=== PATIENT | male | born 1940 | race Asian ===

== ENCOUNTER 2020-06-25 14:09 | Inpatient (IN) | payer OTHER, SELFPAY ==
[2020-06-25] VITALS (14 sets, daily range): BP systolic 112–128
[~2020-06-25] VITALS: Ht 170.2 cm; Wt 61.7 kg
--- NOTE | 2020-06-25 16:00 | NUR ---
RN NOTES: ADMISSION DIRECT ADMIT FROM [facility] ICU. PATIENT CAME IN VIA ACLS TRANSPORT, AWAKE AND ALERT, NOT IN ACUTE DISTRESS, WITH ET TUBE TO VENTILATOR. PATIENT TO BED, SINUS RHYTHM ON THE MONITOR. INITIAL VITAL SIGN CHECKED AND RECORDED. ET TO VENT SETTING: AC 20, VT 400, FIO2 28%, PEEP 5 PATIENT MADE COMFORTABLE, SPO2 98% WILL CALL MD FOR ADMITTING ORDERS.
[2020-06-25] MEDS ORDERED: DOCU-144 PO (16:41)
[2020-06-25] MEDS ORDERED: HYDR-3917 PO (16:41)
[2020-06-25] MEDS ORDERED: ALBU2.5V7 INH (16:41)
[2020-06-25] MEDS ORDERED: ACET325T PO (16:41)
[2020-06-25] MEDS ORDERED: ONDANSETRON HCL 4 MG/2 ML VIAL IVP PRN (16:45)
[2020-06-25] MEDS ORDERED: METOCLOPRAMIDE HCL 10 MG/2 ML VIAL IVP PRN (16:45)
[2020-06-25] MEDS ORDERED: DOCUSATE SODIUM 100 MG/10 ML UDC PO PRN (16:45)
[2020-06-25] MEDS ORDERED: IPRATROPIUM/ALBUTEROL SULFATE 3 ML AMPUL.NEB (DUONEB) INH PRN (16:45)
--- NOTE | 2020-06-25 17:35 | NUR ---
COLLECTED SPUTUM AND MRSA CULTURES AND TAKEN TO LAB.
--- NOTE | 2020-06-25 17:47 | NUR ---
Dr. Moreno aware of consult
--- NOTE | 2020-06-25 17:48 | NUR ---
Called Dr. Gilliam with a consult,Dr. Carmina Epstein data communications engineer today. Spoke with Maira from the exchange
--- NOTE | 2020-06-25 17:54 | NUR ---
Alvarado Croft aware of consult
[2020-06-25] MEDS ORDERED: FLU VACC QS2020-21(65UP)/PF 0.7 ML/SYRINGE I.M. PRN (18:15)
--- NOTE | 2020-06-25 18:45 | NUR ---
CLOSING NOTES PT RESTING IN BED, CHEST RISE AND FALL NOTED ON VENT. PICC LINE INTACT AND PATENT, NO SIGNS OF INFILTRATION NOTED. OGTUBE IN PLACE. NO ACUTE DISTRESS NOTED. ALL NEEDS MET. CALL LIGHT IN REACH. FALL AND ASPIRATION PRECAUTIONS IN PLACE. WILL ENDORSE TO NOC NURSE.
[2020-06-25 19:01] LABS: HEMATOCRIT 23.9 % (36-54); HEMOGLOBIN 7.6 g/dL (14.0-18.0); MEAN CORPUSCULAR HEMOGLOBIN 24 pg (27-31); MEAN CORPUSCULAR HGB CONC 32 % (32-36); MEAN CORPUSCULAR VOLUME 75 fL (79.0-98.0); PLATELET COUNT (AUTO) 211 K/uL (130-430); RED CELL DISTRIBUTION WIDTH 17.4 % (9.0-15.0); WHITE BLOOD COUNT (AUTO) 29.5 K/uL (4.8-10.8)
--- NOTE | 2020-06-25 19:05 | NUR ---
OPENING NOTE: RECEIVED REPORT FROM RN USING SBAR REPORTING. ALL CARE ASSUMED.
[2020-06-25 19:15] LABS: ANION GAP 6 (5-15); CALCIUM 7.3 mg/dL (8.4-11.0); CHLORIDE 115 mmol/L (98-107); CREATININE 1.36 mg/dL (0.55-1.30); GLUCOSE 116 mg/dL (70-99); POTASSIUM 5.2 mmol/L (3.5-5.1); SODIUM SERUM 146 mmol/L (136-145); UREA NITROGEN, BLOOD 67 mg/dL (8-21)
--- NOTE | 2020-06-25 19:19 | NUR ---
CONSULTATION CANCELLED PER FOR CONSULTATION DIALED: [phone] SPOKE TO: CANDY
[2020-06-25 19:21] LABS: ALANINE AMINOTRANSFERASE 72 U/L (12-78); ALBUMIN 1.9 g/dL (3.4-4.8); ASPARTATE AMINOTRANSFERASE 38 U/L (10-37); BAND % (MANUAL) 1 % (0-6); LYMPHOCYTES % (MANUAL) 1 % (20-46); MONOCYTES % (MANUAL) 1 % (0-11); TOTAL BILIRUBIN 0.4 mg/dL (0.0-1.0)
[2020-06-25 19:22] LABS: BASOPHILS % (MANUAL) 0 % (0-2); EOSINOPHILS % (MANUAL) 0 % (0-7)
[2020-06-25] MEDS: FLUCONAZOLE 200 mg/ NS 100 ML IV SCH (20:01)
[2020-06-25] MEDS: FAMOTIDINE PF 20 MG/2 ML VIAL IVP SCH (20:01)
[2020-06-25] MEDS: HEPARIN SODIUM,PORCINE 5,000 UNITS/ML VIAL SUBCUT SCH (20:03)
[2020-06-25] MEDS: PIPERACILLIN/TAZO 2.25G/DEX-IS 50 ML IV SCH (23:05)
[2020-06-26] VITALS (39 sets, daily range): BP systolic 105–143
[2020-06-26 06:22] LABS: BASOPHILS # (AUTO) 0.1 K/uL (0.0-0.2); BASOPHILS % (AUTO) 0.4 % (0.0-2.0); HEMATOCRIT 22.5 % (36-54); HEMOGLOBIN 7.3 g/dL (14.0-18.0); LYMPHOCYTES # (AUTO) 0.3 K/uL (1.0-5.5); LYMPHOCYTES % (AUTO) 1.1 % (20.5-51.5); MEAN CORPUSCULAR HEMOGLOBIN 24 pg (27-31); MEAN CORPUSCULAR HGB CONC 32 % (32-36); MEAN CORPUSCULAR VOLUME 75 fL (79.0-98.0); MONOCYTES # (AUTO) 1.5 K/uL (0.0-1.0); MONOCYTES % (AUTO) 5.5 % (1.7-9.3); PLATELET COUNT (AUTO) 203 K/uL (130-430); WHITE BLOOD COUNT (AUTO) 27.9 K/uL (4.8-10.8)
[2020-06-26] MEDS: PIPERACILLIN/TAZO 2.25G/DEX-IS 50 ML IV SCH ×3 (06:34→22:10)
[2020-06-26 07:15] LABS: ALANINE AMINOTRANSFERASE 60 U/L (12-78); ALBUMIN 1.8 g/dL (3.4-4.8); ANION GAP 6 (5-15); ASPARTATE AMINOTRANSFERASE 31 U/L (10-37); CALCIUM 7.4 mg/dL (8.4-11.0); CHLORIDE 116 mmol/L (98-107); CREATININE 1.34 mg/dL (0.55-1.30); GLUCOSE 108 mg/dL (70-99); POTASSIUM 5.4 mmol/L (3.5-5.1); SODIUM SERUM 147 mmol/L (136-145); TOTAL BILIRUBIN 0.5 mg/dL (0.0-1.0); UREA NITROGEN, BLOOD 66 mg/dL (8-21)
--- NOTE | 2020-06-26 08:00 | NUR ---
AM ASSESSMENT. PT MECHANICALLY INTUBATED, MAKES EYE CONTACT, GENERALIZED EDEMA, TURNED AND REPOSITIONED IN BED, BILAT LEGS ELEVATED ON PILLOWS, IVF INFUSING NS AT 3 ML PER HR, DIOP CATHETER DRAINING, CONTINUE TO MONITOR.
[2020-06-26] MEDS ORDERED: methylPREDNISolone SOD SUCC 40 MG/ML VIAL IVP SCH (09:00)
[2020-06-26] MEDS: HEPARIN SODIUM,PORCINE 5,000 UNITS/ML VIAL SUBCUT SCH ×2 (09:00→20:59)
[2020-06-26] MEDS: SOD FERRIC GLUC COMPLEX/SUC 125 MG in NS 100 ML IV SCH (09:06)
--- NOTE | 2020-06-26 10:20 | NUR ---
SURGEON. DR MATHEW CAME WITH NEW ORDERS.
--- NOTE | 2020-06-26 11:40 | NUR ---
CONSENT. DR MATHEW IN THE STATION, PHONED PT'S FAMILY, SPOKE TO HARRIET GERMAN. HE GAVE SURGERY AND TRANSFUSION CONSENTS.
--- NOTE | 2020-06-26 12:06 | NUR ---
Nutrition Update Brody Scale 15 noted. Pt admitted for chronic hypoxemic respiratory failure. Diet: Jevity 1.5 at 55 ml/hr, Free Water Flush: 100 ml Q 6H via OGT BMI: 21.5 kg/m2 RD to follow per nutrition care standards.
--- NOTE | 2020-06-26 17:49 | NUR ---
Dietitian Recommendations * Recommend continuing Jevity 1.5 at 55 ml/hr, Free Water Flush: 100 ml Q 6H via OGT Provides: 1980 kcal/day, 84 gm protein/day, and 1403 ml free water/day Meets: 106% of lower end of estimated caloric needs and 90% of lower end of estimated protein needs LP, RD Please refer to Nutrition Assessment for details. Addendum: 06/26/20 at [address] Amended: Links added.
--- NOTE | 2020-06-26 18:24 | NUR ---
BLOOD BANK. CALLED TO INQUIRE OF THE AVAILABILITY OF BLOOD, ELECTRONICS RECYCLER DEAN STATED THAT THEY RUN OUT OF B POSITIVE IN THE DEPT, THEY WILL CONTACT ICU WHEN THE BLOOD PRODUCT IS DELIVERED AND READY FOR RISK MGR.
--- NOTE | 2020-06-26 20:30 | NUR ---
RECEIVED PT BEDRIDDEN AND VENT. DEPENDENT VIA. ORAL E.T.T. HE DOES RESPOND TO VERBAL & TACTILE STIMULI; NOTED LOCALIZES TO SOURCE OF STIMULI BUT DOES NOT MOVE LOWER LEGS TO COMMAND. HE DOES MOVE ARMS WELL (AEB) PT. SWINGING OR SWATTING @ MY HANDS DURING HIS PHYSICAL EXAM.
[2020-06-26] MEDS: FLUCONAZOLE 200 mg/ NS 100 ML IV SCH (20:57)
[2020-06-26] MEDS: FAMOTIDINE PF 20 MG/2 ML VIAL IVP SCH (20:57)
[2020-06-26] MEDS: LINEZOLID 300 ML IV SCH (20:57)
--- NOTE | 2020-06-26 21:15 | NUR ---
CALLED BLOOD BANK & SPOKE WITH GLOBAL ACCOUNT MANAGER.DEAN; SHE STATES ([id number] JUST ARRIVED. STATES SHE WILL CALL WHEN UNITS READY.
[2020-06-27] VITALS (38 sets, daily range): BP systolic 128–162
--- NOTE | 2020-06-27 03:15 | NUR ---
PATIENT GESTURING @ FOREHEAD. WHEN ASKED DOES HIS HEAD HURT; PT. NODS YES. [0330AM] PT. GIVEN TYLENOL 650MG VIA. OGT. FOR C/O HEADACHE.
[2020-06-27] MEDS: ACETAMINOPHEN 325 MG TABLET NG PRN (03:31)
[2020-06-27] MEDS: PIPERACILLIN/TAZO 2.25G/DEX-IS 50 ML IV SCH ×3 (06:45→22:02)
[2020-06-27 06:56] LABS: PROTHROMBIN TIME 9.9 SECS (9.5-12.5)
[2020-06-27 07:50] LABS: ALANINE AMINOTRANSFERASE 57 U/L (12-78); ALBUMIN 1.8 g/dL (3.4-4.8); ANION GAP 9 (5-15); ASPARTATE AMINOTRANSFERASE 25 U/L (10-37); CALCIUM 7.3 mg/dL (8.4-11.0); CHLORIDE 114 mmol/L (98-107); GLUCOSE 129 mg/dL (70-99); SODIUM SERUM 147 mmol/L (136-145); TOTAL BILIRUBIN 0.6 mg/dL (0.0-1.0); UREA NITROGEN, BLOOD 66 mg/dL (8-21)
--- NOTE | 2020-06-27 08:00 | NUR ---
AM ASSESSMENT. PT AWAKE, TEMP TAKEN, 98.9, ASSESSED FOR PAIN, SHAKING HIS HEAD LEFT AND RIGHT, SHEET AND GOWN TO THE LEFT SIDE OF HIS BODY MOIST, REMOVED BP CUFF FROM LEFT ARM, SKIN WEEPING TO ANTECUBITAL AREA, WET WIPES APPLIED AND PATCHED WITH NON ABSORBENT PAD, WITH LINEN, BP CUFF REAPPLIED. PT INCONTINENT OF BOWEL, LARGE AMOUNT OF DARK COLOR STOOL, LOOSE CONSISTENCY. INCONTINENT CARE DONE, ALL LINEN CHANGED, PT ATTEMPTS TO HIT NURSE WITH HIS ARM, AND WOULD GRAB THE VENTILATOR CONNECTING TUBES TO PULL THE TUBE DOWN.
[2020-06-27 08:03] LABS: BASOPHILS % (AUTO) 0.1 % (0.0-2.0); EOSINOPHILS % (AUTO) 0.1 % (0.0-4.0); HEMATOCRIT 28.7 % (36-54); HEMOGLOBIN 9.4 g/dL (14.0-18.0); LYMPHOCYTES # (AUTO) 0.2 K/uL (1.0-5.5); LYMPHOCYTES % (AUTO) 0.7 % (20.5-51.5); MEAN CORPUSCULAR HEMOGLOBIN 26 pg (27-31); MEAN CORPUSCULAR HGB CONC 33 % (32-36); MEAN CORPUSCULAR VOLUME 78 fL (79.0-98.0); MONOCYTES # (AUTO) 1.4 K/uL (0.0-1.0); MONOCYTES % (AUTO) 5.5 % (1.7-9.3); NEUTROPHILS # (AUTO) 23.9 K/uL (1.8-7.7); PLATELET COUNT (AUTO) 148 K/uL (130-430); RED BLOOD CELL COUNT(AUTO) 3.68 MIL/uL (4.2-6.2); RED CELL DISTRIBUTION WIDTH 19.9 % (9.0-15.0); WHITE BLOOD COUNT (AUTO) 25.5 K/uL (4.8-10.8)
[2020-06-27] MEDS: LINEZOLID 300 ML IV SCH ×2 (08:06→20:24)
[2020-06-27 08:29] LABS: NEUTROPHILS % (AUTO) 93.6 % (40.0-70.0)
[2020-06-27] MEDS ORDERED: methylPREDNISolone SOD SUCC 40 MG/ML VIAL IVP SCH (09:00)
[2020-06-27] MEDS: HEPARIN SODIUM,PORCINE 5,000 UNITS/ML VIAL SUBCUT SCH ×2 (09:00→20:25)
[2020-06-27] MEDS: SOD FERRIC GLUC COMPLEX/SUC 125 MG in NS 100 ML IV SCH (10:03)
[2020-06-27] MEDS: hydrALAZINE HCL 20 MG/ML VIAL IVP PRN (14:34)
--- NOTE | 2020-06-27 14:34 | NUR ---
HIGH BP. CALLED DR DURAN AND REPORTED THE PATIENT'S BLOOD PRESSURE, 158/100, 158/94. NEW ORDERS RECEIVED. MEDICATED PT WITH HYDRALAZINE 10 MG IVP, WILL CONTINUE TO MONITOR PT.
[2020-06-27] MEDS: EPOETIN ALFA 10,000 UNITS/ML VIAL SUBCUT SCH (17:00)
--- NOTE | 2020-06-27 18:50 | NUR ---
AGITATION. PT PULLED OUT HIS OGT, ETT REMAIN INTACT, DR MORROW IN THE UNIT AND MADE HER AWARE, NEW ORDERS RECEIVED. PT UNCOOPERATIVE WHEN FEEDING TUBE WAS ATTEMPTED INTO MOUTH AND NOSE. RESTRAINTS APPLIED TO BOTH WRISTS, NGT SIZE 16 FR INSERTED, AUSCULTATED OVER THE ABDOMEN WITH POSITIVE GAS SOUNDS HEARD.
--- NOTE | 2020-06-27 19:25 | NUR ---
Opening note received report and assumed care. patient awake and able to follow simple commands. BRENDAN picc line in place and patent with ivf infusing to keep open. ngt in place with Jevity infusing and tolerating without residuals. Vent to ETT tolerating settings on PRVC mode. Jackson catheter in place and draining to gravity. will continue to monitor as per unit protocol.
--- NOTE | 2020-06-27 19:45 | NUR ---
Spoke with patient's son Can to report that patient had to be put on restraints due to becoming combative. Also informed NGT was replaced during dayshift. Family acknowledged.
--- NOTE | 2020-06-27 20:05 | NUR ---
Repositioned for comfort. patient turned and supported with pillow. denies pain but reported feeling cold. No fever noted.
[2020-06-27] MEDS: FLUCONAZOLE 200 mg/ NS 100 ML IV SCH (20:16)
[2020-06-27] MEDS: FAMOTIDINE PF 20 MG/2 ML VIAL IVP SCH (22:02)
--- NOTE | 2020-06-27 23:53 | NUR ---
Assessment completed and patient repositioned. Tolerated well.
[2020-06-28] VITALS (33 sets, daily range): BP systolic 88–171
[2020-06-28] MEDS: hydrALAZINE HCL 20 MG/ML VIAL IVP PRN (04:55)
--- NOTE | 2020-06-28 04:56 | NUR ---
Blood pressure continues to increase as now BP 171/102 HR 92. hydralazine 10 mg ivp given as per MD orders pRN for SBP>165
[2020-06-28] MEDS: PIPERACILLIN/TAZO 2.25G/DEX-IS 50 ML IV SCH ×3 (06:34→22:00)
[2020-06-28 06:54] LABS: ANION GAP 8 (5-15); CALCIUM 7.8 mg/dL (8.4-11.0); CHLORIDE 114 mmol/L (98-107); CREATININE 1.14 mg/dL (0.55-1.30); GLUCOSE 129 mg/dL (70-99); POTASSIUM 4.8 mmol/L (3.5-5.1); SODIUM SERUM 146 mmol/L (136-145); UREA NITROGEN, BLOOD 57 mg/dL (8-21)
[2020-06-28 06:58] LABS: BASOPHILS % (AUTO) 0.1 % (0.0-2.0); EOSINOPHILS % (AUTO) 0.1 % (0.0-4.0); HEMATOCRIT 31.1 % (36-54); HEMOGLOBIN 10.2 g/dL (14.0-18.0); LYMPHOCYTES # (AUTO) 0.4 K/uL (1.0-5.5); LYMPHOCYTES % (AUTO) 1.5 % (20.5-51.5); MEAN CORPUSCULAR HEMOGLOBIN 26 pg (27-31); MEAN CORPUSCULAR HGB CONC 33 % (32-36); MEAN CORPUSCULAR VOLUME 79 fL (79.0-98.0); MONOCYTES % (AUTO) 3.7 % (1.7-9.3); NEUTROPHILS # (AUTO) 24.3 K/uL (1.8-7.7); PLATELET COUNT (AUTO) 139 K/uL (130-430); RED BLOOD CELL COUNT(AUTO) 3.96 MIL/uL (4.2-6.2); RED CELL DISTRIBUTION WIDTH 20.6 % (9.0-15.0); WHITE BLOOD COUNT (AUTO) 25.7 K/uL (4.8-10.8)
--- NOTE | 2020-06-28 07:01 | NUR ---
OPENING NOTE: RECEIVED REPORT FROM RN USING SBAR REPORTING. ALL CARE ASSUMED.
[2020-06-28 07:55] LABS: NEUTROPHILS % (AUTO) 94.6 % (40.0-70.0)
--- NOTE | 2020-06-28 08:05 | NUR ---
SINUS TACHYCARDIA: PATIENT NOTED TO BE SINUS TACH HR 166, PATIENT ASSESSED, PATIENTS EYES OPEN, UNABLE TO COMMUNICATE R/T INTUBATION. PATIENT NOTED TO BE ANXIOUS WITH PATIENT SHOWING SIGNS OF RESISTANCE AGAINST VENTILATION. ATTEMPTED DIVERSION WITH REPOSITIONING AND TV ON. INEFFECTIVE. TEJAL JIMENEZ MD.
--- NOTE | 2020-06-28 08:19 | NUR ---
CPOT: CPOT RATED AT 6, PENDING RETURN CALL FROM MD FOR ORDERS.
[2020-06-28] MEDS: LINEZOLID 300 ML IV SCH ×2 (09:18→22:19)
[2020-06-28] MEDS: SOD FERRIC GLUC COMPLEX/SUC 125 MG in NS 100 ML IV SCH (09:18)
[2020-06-28] MEDS: ACETAMINOPHEN 325 MG TABLET NG PRN (09:18)
[2020-06-28] MEDS: HEPARIN SODIUM,PORCINE 5,000 UNITS/ML VIAL SUBCUT SCH ×2 (09:19→21:00)
--- NOTE | 2020-06-28 09:37 | NUR ---
TYLENOL: PRN TYLENOL GIVEN FOR DISCOMFORT, REPOSITIONED FOR COMFORT WILL RE-ASSESS.
--- NOTE | 2020-06-28 09:52 | NUR ---
DR. HOUSER: MD AT BEDSIDE, VERBAL REPORT GIVEN, NEW ORDER FOR TB GOLD RC'VD, ORDER PLACED AND LAB AWARE.
--- NOTE | 2020-06-28 10:12 | NUR ---
DR. MORROW: MD AT BEDSIDE, VERBAL REPORT GIVEN, NEW ORDER RC'VD FOR PRN LOPRESSOR. ORDER PLACED AND TRANSCRIBED.
--- NOTE | 2020-06-28 10:15 | NUR ---
TYLENOL RE-ASSESSMENT: TYLENOL FOUND TO BE EFFECTIVE, EYES CLOSED, HR 105, NO TENSING NOTED.
[2020-06-28] MEDS ORDERED: METOPROLOL TARTRATE 5 MG/5 ML VIAL IVP PRN (10:30)
--- NOTE | 2020-06-28 11:53 | NUR ---
RN ROUNDS: PATIENT REPOSITIONED FOR COMFORT, HR 102 ON MONITOR, PATIENT APPEARS CALM IN NO ACUTE DISTRESS AND OR DISCOMFORT. SAFETY PRECAUTIONS IN PLACE, BED IN LOWEST LOCKED POSITION FOR SAFETY.
--- NOTE | 2020-06-28 14:31 | NUR ---
PICC DRESSING: PICC DRESSING CHANGED TO BRENDAN, PREVIOUS DRESSING SOILED AND LOOSE. STERILE TECHNIQUE USED, PATIENT TOLERATED WELL. NO SIGNS OF INFECTION, NO REDNESS, NO DRAINAGE NOTED TO SITE.
--- NOTE | 2020-06-28 14:41 | NUR ---
FAMILY: SPOKE WITH FAMILY, VERBAL UPDATE GIVEN, ALL QUESTIONS ANSWERED AT THIS TIME.
--- NOTE | 2020-06-28 16:33 | NUR ---
Nutrition F/U RD reviewed pt's current EMR record including diet Hx, physician notes, nursing notes, pertinent labs/meds/procedures, care trends, and care activity. Admission Dx: Chronic hypoxemic respiratory failur PMH: dementia and HTN per physician notes Pt also found w/ empyema, sepsis, and DERRICK per physician notes SARS-CoV-2 Ag (Rapid) Negative 06/25 Current Diet Order/Nutrition Support: Jevity 1.5 at 55 ml/hr, Free Water Flush: 100 ml Q 6H via OGT x2 days Subjective Info: RD bedside visit deferred d/t isolation precautions and PPE conservation efforts. RN reported pt is tolerating TF fine, and that pt's Sx is still scheduled for next week (07/01) -- per EMR review, plan for bronchoscopy, L-video assisted thoracoscopic Sx, possible thoracotomy, decortication, R-chest tube placement, and tracheostomy; pt continues intubated to vent, confused/non-communicative; TF Rate: 40 ml 06/28; GRV: 0 ml 06/28; TF Intakes: 550 ml 06/28; abd is soft w/ hypoactive bowel sounds; OGT present; last BM x3 06/27 -- RN stated pt is no longer having loose stools today; Brody scale: 10, no skin breakdown noted Pertinent Medications: piperacillin/tazobactam IV, pepcid Pertinent Labs: WBC 25.7 H (trending down), Na 146 H (trending down), K 4.8 WNL (improved), BUN 57 H (trending down), CRE 1.14 H (trending down), BG 129 H (trending up), ALB 1.8 L Ht: 5'7"/67" Wt: 136#/62 kg (06/26) -- stable Body Mass Index: 21.30 kg/m2 %IBW: 92 [place]/Adjusted Body Weight: IBW: 148#/67 kg. 92% Estimated Energy Expenditure (kcals/day) 4487-7015 kcal/day (30-35 kcal/kg CBW d/t sepsis) Estimated Protein Required (g/day) 93-124 gm/day (1.5-2 gm/kg CBW d/t sepsis) Estimated Fluid Required (l/day) 1.6-1.9 L/day (25-30 ml/kg CBW d/t geriatric maintenance) Problem/Etiology/Signs/Symptoms Increased nutritional needs related to metabolic demands as evidenced by estimated nutritional requirements for sepsis. *ongoing Expected Outcomes/Goals - Monitor tolerance to EN support w/ goal of pt meeting at least 80% of estimated nutritional needs, labs trending WNL, normal GI function, and skin integrity/wt maintenance Dietitian Recommendations * Recommend continuing Jevity 1.5 at 55 ml/hr, Free Water Flush: 100 ml Q 6H via OGT Provides: 1980 kcal/day, 84 gm protein/day, and 1403 ml free water/day Meets: 106% of lower end of estimated caloric needs and 90% of lower end of estimated protein needs Follow Up High Risk: F/U in 2-3 days
--- NOTE | 2020-06-28 16:39 | NUR ---
Dietitian Recommendations * Recommend continuing Jevity 1.5 at 55 ml/hr, Free Water Flush: 100 ml Q 6H via OGT Provides: 1980 kcal/day, 84 gm protein/day, and 1403 ml free water/day Meets: 106% of lower end of estimated caloric needs and 90% of lower end of estimated protein needs LP, RD Please refer to Nutrition F/U for details.
--- NOTE | 2020-06-28 18:42 | NUR ---
RN ROUNDS: PATIENT REPOSITIONED FOR COMFORT, HR 90 RRR ON MONITOR, PATIENT APPEARS CALM IN NO ACUTE DISTRESS AND OR DISCOMFORT. SAFETY PRECAUTIONS IN PLACE, BED IN LOWEST LOCKED POSITION FOR SAFETY.
--- NOTE | 2020-06-28 18:49 | NUR ---
CLOSING NOTE: REPORT GIVEN TO NOC RN USING SBAR REPORT, ALL CARES ENDORSED. PATIENT STABLE IN NO ACUTE DISTRESS AND OR DISCOMFORT. ALL SAFETY PRECAUTIONS IN PLACE.
--- NOTE | 2020-06-28 19:30 | NUR ---
Received report and assumed care. Assessment completed and repositioned for comfort.
[2020-06-28] MEDS: FLUCONAZOLE 200 mg/ NS 100 ML IV SCH (21:18)
[2020-06-28] MEDS: FAMOTIDINE PF 20 MG/2 ML VIAL IVP SCH (22:21)
--- NOTE | 2020-06-28 23:16 | NUR ---
continues to be incontinent of stool. patient requires full assist for perineal care; still continues to grab on tubes while being turned. Scrotum edema still evident. After repositioning, patient's respiratory rate 30 and heart rate remains over 100. Patient tolerated with moderate discomfort. will continue to monitor.
[2020-06-29] VITALS (29 sets, daily range): BP systolic 95–125
[2020-06-29] MEDS: LORazepam 2 MG/ML VIAL IVP PRN ×2 (00:28→12:48)
--- NOTE | 2020-06-29 00:36 | NUR ---
Patient is awake with RR 32 and HR 116 noted to be agitated. Ativan 0.5 mg IVP given as per MD orders PRN for agitation.
--- NOTE | 2020-06-29 02:00 | NUR ---
Daylight savings. Documentation advanced to 0300.
--- NOTE | 2020-06-29 03:40 | NUR ---
HR 140 Lopressor 1.25 mg IVP given as per MD orders
[2020-06-29] MEDS: PIPERACILLIN/TAZO 2.25G/DEX-IS 50 ML IV SCH ×3 (06:28→22:58)
[2020-06-29 06:38] LABS: BASOPHILS # (AUTO) 0.1 K/uL (0.0-0.2); BASOPHILS % (AUTO) 0.2 % (0.0-2.0); EOSINOPHILS # (AUTO) 0.1 K/uL (0.0-0.4); EOSINOPHILS % (AUTO) 0.2 % (0.0-4.0); HEMOGLOBIN 9.7 g/dL (14.0-18.0); LYMPHOCYTES # (AUTO) 0.2 K/uL (1.0-5.5); LYMPHOCYTES % (AUTO) 0.8 % (20.5-51.5); MEAN CORPUSCULAR HEMOGLOBIN 26 pg (27-31); MEAN CORPUSCULAR HGB CONC 32 % (32-36); MEAN CORPUSCULAR VOLUME 80 fL (79.0-98.0); MONOCYTES # (AUTO) 0.5 K/uL (0.0-1.0); MONOCYTES % (AUTO) 1.9 % (1.7-9.3); NEUTROPHILS # (AUTO) 26.2 K/uL (1.8-7.7); PLATELET COUNT (AUTO) 96 K/uL (130-430); RED BLOOD CELL COUNT(AUTO) 3.78 MIL/uL (4.2-6.2); RED CELL DISTRIBUTION WIDTH 21.1 % (9.0-15.0); WHITE BLOOD COUNT (AUTO) 27.1 K/uL (4.8-10.8)
--- NOTE | 2020-06-29 06:59 | NUR ---
OPENING NOTE: RECEIVED REPORT FROM RN USING SBAR REPORTING. ALL CARE ASSUMED.
[2020-06-29 07:11] LABS: ANION GAP 8 (5-15); CALCIUM 7.2 mg/dL (8.4-11.0); CHLORIDE 114 mmol/L (98-107); CREATININE 1.15 mg/dL (0.55-1.30); GLUCOSE 106 mg/dL (70-99); POTASSIUM 4.8 mmol/L (3.5-5.1); SODIUM SERUM 146 mmol/L (136-145); UREA NITROGEN, BLOOD 55 mg/dL (8-21)
[2020-06-29 08:07] LABS: NEUTROPHILS % (AUTO) 96.9 % (40.0-70.0)
[2020-06-29] MEDS: LINEZOLID 300 ML IV SCH ×2 (08:55→22:04)
[2020-06-29] MEDS: HEPARIN SODIUM,PORCINE 5,000 UNITS/ML VIAL SUBCUT SCH (08:55)
--- NOTE | 2020-06-29 08:56 | NUR ---
HEPARIN: HELD HEPARIN, COPIOUS BLOOD TINGED SECRETION NOTED, CHARGE AWARE. ETT SUCTIONED, NO RESP DISTRESS NOTED, MD WILL BE MADE AWARE UPON ROUNDING ON PATIENT THIS AM.
--- NOTE | 2020-06-29 09:11 | NUR ---
CALLED [facility] ICU: SPOKE WITH UNIT PERSONNEL GENERALIST MANAGER, SHE STATED SHE WILL FAX TB RESULTS OVER TO UNIT.
--- NOTE | 2020-06-29 09:17 | NUR ---
CPOT: SCORE OF 2, REPOSITIONED FOR COMFORT, WILL CONTINUE TO MONITOR.
--- NOTE | 2020-06-29 11:00 | NUR ---
MD GUTIERREZ: MD AT BEDSIDE, VERBAL REPORT GIVEN, NO NEW ORDERS AT THIS TIME.
--- NOTE | 2020-06-29 11:27 | NUR ---
MD MORROW: MD AT BEDSIDE VERBAL REPORT GIVEN, NEW ORDERS RCVD FOR LABORATORY DRAW, PT/INR, PTT, ORDER PLACED AND LAB AWARE OF STAT ORDERS.
--- NOTE | 2020-06-29 12:49 | NUR ---
ATIVAN: PRN ATIVAN GIVEN PER ORDER FOR ANXIETY, PATIENT RESTLESS AND AGITATED.
--- NOTE | 2020-06-29 13:15 | NUR ---
ATIVAN RE-ASSESSMENT: ATIVAN SLIGHTLY EFFECTIVE, PATIENT REMAINS SLIGHTLY RESTLESS AT THIS TIME, WILL CONTINUE TO MONITOR. REPOSITIONED FOR COMFORT, ALL SAFETY PRECAUTIONS IN PLACE.
[2020-06-29 13:31] LABS: PROTHROMBIN TIME 10.5 SECS (9.5-12.5)
--- NOTE | 2020-06-29 14:05 | NUR ---
PLATELET: DR. MATHEW MADE AWARE OF PLATELET COUNT, HAS ORDERED ALBUMIN 25% 50ML X1.
[2020-06-29] MEDS ORDERED: ALBUMIN HUMAN 25% 50 ML IV ONE ×2 (14:14→14:15)
--- NOTE | 2020-06-29 14:35 | NUR ---
ALBUMIN RE-ASSESSMENT: ALBUMIN FOUND TO BE EFFECTIVE IN TREATING HYPOTENSION EPISODE AT THIS TIME. BP 120/55 ON MONITOR NOTED. AWARE.
[2020-06-29] MEDS: FLUCONAZOLE 200 mg/ NS 100 ML IV SCH (20:24)
--- NOTE | 2020-06-29 21:30 | NUR ---
Spoke with patient's grand daughter Dawn. Information provided, questions answered.
[2020-06-29] MEDS: FAMOTIDINE PF 20 MG/2 ML VIAL IVP SCH (22:05)
[2020-06-30] VITALS (35 sets, daily range): BP systolic 102–140
[2020-06-30 04:43] LABS: ANION GAP 7 (5-15); CHLORIDE 113 mmol/L (98-107); CREATININE 1.18 mg/dL (0.55-1.30); GLUCOSE 119 mg/dL (70-99); POTASSIUM 4.8 mmol/L (3.5-5.1); SODIUM SERUM 146 mmol/L (136-145); UREA NITROGEN, BLOOD 51 mg/dL (8-21)
--- NOTE | 2020-06-30 05:30 | NUR ---
Morning care provided. patient attempting to grab on tubes but easy to redirect. bed bath given, linen changed.
[2020-06-30 05:31] LABS: BASOPHILS % (AUTO) 0.2 % (0.0-2.0); EOSINOPHILS # (AUTO) 0.2 K/uL (0.0-0.4); EOSINOPHILS % (AUTO) 0.9 % (0.0-4.0); HEMATOCRIT 26.1 % (36-54); HEMOGLOBIN 8.3 g/dL (14.0-18.0); LYMPHOCYTES # (AUTO) 0.3 K/uL (1.0-5.5); LYMPHOCYTES % (AUTO) 1.1 % (20.5-51.5); MEAN CORPUSCULAR HEMOGLOBIN 25 pg (27-31); MEAN CORPUSCULAR HGB CONC 32 % (32-36); MEAN CORPUSCULAR VOLUME 80 fL (79.0-98.0); MONOCYTES # (AUTO) 0.4 K/uL (0.0-1.0); MONOCYTES % (AUTO) 1.6 % (1.7-9.3); NEUTROPHILS # (AUTO) 24.6 K/uL (1.8-7.7); PLATELET COUNT (AUTO) 76 K/uL (130-430); RED BLOOD CELL COUNT(AUTO) 3.28 MIL/uL (4.2-6.2); RED CELL DISTRIBUTION WIDTH 21.3 % (9.0-15.0); WHITE BLOOD COUNT (AUTO) 25.6 K/uL (4.8-10.8)
[2020-06-30 06:26] LABS: NEUTROPHILS % (AUTO) 96.2 % (40.0-70.0)
[2020-06-30] MEDS: PIPERACILLIN/TAZO 2.25G/DEX-IS 50 ML IV SCH ×3 (07:04→21:03)
--- NOTE | 2020-06-30 07:07 | NUR ---
OPENING NOTE: RECEIVED REPORT FROM RN USING SBAR REPORTING. ALL CARE ASSUMED.
--- NOTE | 2020-06-30 07:47 | NUR ---
DR. MATHEW REQUESTED: PAGED DR. MATHEW HE REQUESTED TO GIVE HIM VERBAL UPDATE ON PATIENTS CONDITION THROUGH NOC SHIFT. PENDING RETURN CALL.
[2020-06-30] MEDS: LINEZOLID 300 ML IV SCH ×2 (08:33→20:26)
--- NOTE | 2020-06-30 09:00 | NUR ---
DR. WILCOX: MD AT BEDSIDE, VERBAL REPORT GIVEN, NO NEW ORDERS.
--- NOTE | 2020-06-30 09:53 | NUR ---
DR. MATHEW: SPOKE WITH MD OVER PHONE, UPDATE GIVEN, NEW ORDERS RCVD AND TRANSCRIBED, CHARGE NURSE AWARE.
--- NOTE | 2020-06-30 09:54 | NUR ---
HIGH ALERT NOTE: Called back identified within the medical roster to verify physician authenticity.Orders rc'vd for 2 units PRBC. orders placed and charge aware.
[2020-06-30] MEDS ORDERED: NACL 0.9% 1,000 ML IV SCH (10:00)
--- NOTE | 2020-06-30 10:38 | NUR ---
BLOOD BANK: SPOKE WITH CLAIRE IN LAB, CONFIRMED ORDERS FOR BLOOD TO BE ORDERED. TOTAL OF 4 UNIT, 2 FOR INFUSION TODAY AND 2 FOR STANDBY TOMORROW FOR SURGERY. PER CLAIRE PLATELETS MUST BE ORDERED TOMORROW AM PRIOR TO SURGERY. WILL ENDORSE TO NOC NURSE, CHARGE AWARE.
[2020-06-30] MEDS ORDERED: NACL 0.9% 1,000 ML IV ONE (10:45)
--- NOTE | 2020-06-30 10:56 | NUR ---
BLOOD TRANSFUSION STARTED: 1 UNIT PRBC TRANSFUSION STARTED, PRE-ASSESSMENT VITALS OBTAINED, STABLE, WILL MONITOR PATIENT CLOSELY FOR ADVERSE EFFECTS.
--- NOTE | 2020-06-30 11:11 | NUR ---
15 MIN POST BLOOD TRANSFUSION START TIME: PATIENT REMAINS STABLE WITH NO SIGNIFICANT CHANGE IN VITALS, RATE INCREASED TOLERATED, WILL CONTINUE TO MONITOR.
--- NOTE | 2020-06-30 13:28 | NUR ---
DR. HOUSER: AT BEDSIDE, VERBAL REPORT GIVEN, NO NEW ORDERS.
--- NOTE | 2020-06-30 14:33 | NUR ---
BLOOD TRANSFUSION COMPLETED: 1ST UNIT OF PRBC INFUSED. PATIENT TOLERATED WELL WITH NO ADVERSE EFFECTS NOTED.
--- NOTE | 2020-06-30 14:34 | NUR ---
2 UNIT OF PRBC: SECOND UNIT OF BLOOD TRANSFUSION STARTED, PATIENT TOLERATING WITH NO ADVERSE EFFECTS NOTED.
--- NOTE | 2020-06-30 15:00 | NUR ---
PRBC F/U: PATIENT REMAINS STABLE IN NO ACUTE DISTRESS AND OR DISCOMFORT.
[2020-06-30] MEDS: EPOETIN ALFA 10,000 UNITS/ML VIAL SUBCUT SCH (17:17)
--- NOTE | 2020-06-30 17:21 | NUR ---
DR. MATHEW: DR. MATHEW MADE OF AWARE OF NO URINE OUTPUT HE HAS ORDERED A STAT BMP, ORDER PLACED AND WILL NOTIFY MD OF RESULTS WHEN THEY ARE AVAILABLE.
--- NOTE | 2020-06-30 17:40 | NUR ---
2 PRBC: UNIT INFUSED WITH NO ADVERSE EFFECTS, PATIENT TOLERATED WELL.
--- NOTE | 2020-06-30 18:15 | NUR ---
LAB: TUNNEL DRIER OPERATOR AT BEDSIDE COMPLETING BLOOD DRAW, UNABLE TO GAIN ACCESS FOR DRAW, LV FROM PICC LINE, WASTED 10ML, LV 10ML FOR TECH.
--- NOTE | 2020-06-30 18:29 | NUR ---
RN ROUNDS: PATIENT REPOSITIONED FOR COMFORT, HR 101 ON MONITOR, PATIENT APPEARS CALM IN NO ACUTE DISTRESS AND OR DISCOMFORT. SAFETY PRECAUTIONS IN PLACE, BED IN LOWEST LOCKED POSITION FOR SAFETY.
[2020-06-30 18:45] LABS: ANION GAP 8 (5-15); CALCIUM 7.3 mg/dL (8.4-11.0); CHLORIDE 113 mmol/L (98-107); CREATININE 1.12 mg/dL (0.55-1.30); GLUCOSE 81 mg/dL (70-99); POTASSIUM 4.5 mmol/L (3.5-5.1); SODIUM SERUM 145 mmol/L (136-145); UREA NITROGEN, BLOOD 48 mg/dL (8-21)
--- NOTE | 2020-06-30 19:12 | NUR ---
PAGED FOR ORDERS DIALED: [phone] SPOKE TO: CHEIKH
--- NOTE | 2020-06-30 19:16 | NUR ---
DR. MATHEW; SPOKE WITH DR. MATHEW, HE HAS BEEN MADE AWARE OF CMP RESULTS, NEW ORDER RECEIVED FOR ALBUMIN 25%. DR. MATHEW HAS REQUESTED NOC NURSE FOLLOW UP WITH HIM IN TWO HOURS.
--- NOTE | 2020-06-30 19:18 | NUR ---
CLOSING NOTE: REPORT GIVEN TO NOC NURSE, ALL CARES ENDORSED. ALL SAFETY PRECAUTIONS IN PLACE.
[2020-06-30] MEDS ORDERED: ALBUMIN HUMAN 25% 50 ML IV ONE (19:30)
[2020-06-30] MEDS: FAMOTIDINE PF 20 MG/2 ML VIAL IVP SCH (20:26)
[2020-06-30] MEDS: FLUCONAZOLE 200 mg/ NS 100 ML IV SCH (20:26)
--- NOTE | 2020-06-30 20:50 | NUR ---
ALBUMEN 25 % 50 ML IVPB administer as ordered tolerating continue to monitor .
--- NOTE | 2020-06-30 20:52 | NUR ---
GENERAL EDEMA is noted off loading with pillows also position change on schedule tolerate .
[2020-06-30 22:06] LABS: MYCOPLASMA PNEUMONIAE IgM <770 U/mL (0-769)
--- NOTE | 2020-06-30 22:15 | NUR ---
PHONED PAGED DR QUINCY GAMEZ .
--- NOTE | 2020-06-30 22:31 | NUR ---
SPOKE WITH DR MATHEW & UPDATED PATIENT HAS SCANT URINE OUT PUT , NEW ORDERS OBTAINED FOR AM LABS .
[2020-07-01] VITALS (34 sets, daily range): BP systolic 98–144
--- NOTE | 2020-07-01 01:20 | NUR ---
LARGE STOOL NOTED partial bed given kept clean also dry as needed off loading & position change implemented & tolerated .
[2020-07-01] MEDS: PIPERACILLIN/TAZO 2.25G/DEX-IS 50 ML IV SCH ×3 (05:53→22:26)
[2020-07-01 06:20] LABS: ALANINE AMINOTRANSFERASE 39 U/L (12-78); ALBUMIN 1.8 g/dL (3.4-4.8); ANION GAP 9 (5-15); ASPARTATE AMINOTRANSFERASE 29 U/L (10-37); CALCIUM 7.1 mg/dL (8.4-11.0); CHLORIDE 112 mmol/L (98-107); CREATININE 1.08 mg/dL (0.55-1.30); GLUCOSE 68 mg/dL (70-99); POTASSIUM 4.5 mmol/L (3.5-5.1); SODIUM SERUM 145 mmol/L (136-145); UREA NITROGEN, BLOOD 46 mg/dL (8-21)
--- NOTE | 2020-07-01 06:54 | NUR ---
DR QUINCY GAMEZ CALLED FOR AM LAB RESULTS , WITCH ARE PENDING DR MATHEW STATED WILL BE IN TO SEE PATIENT THIS AM .
--- NOTE | 2020-07-01 07:25 | NUR ---
AM ASSESSMENT. PT AWAKE AT THIS TIME, UPPER SIDE OF HIS ARMS WEEPING, PICC INTACT TO RIGHT UPPER ARM, RESTRAINTS REMOVED AND REPLACE, SKIN INTACT UNDER THE DEVICE, REPOSITIONED PT IN BED. DR MATHEW IN THE STATION, SPEAKING TO PT'S SON CAN OVER THE PHONE, SURGERY TODAY CANCELLED, PT WILL NEED A DIALYSIS ACCESS AND POSSIBLY BE DIALYZED. FAMILY CONSENTED ON BOTH.
[2020-07-01] MEDS ORDERED: LIDOCAINE 2%, 20 ML MDV ONE (07:29)
[2020-07-01 07:34] LABS: BASOPHILS # (AUTO) 0.1 K/uL (0.0-0.2); BASOPHILS % (AUTO) 0.6 % (0.0-2.0); EOSINOPHILS # (AUTO) 0.1 K/uL (0.0-0.4); EOSINOPHILS % (AUTO) 0.7 % (0.0-4.0); HEMATOCRIT 31.6 % (36-54); HEMOGLOBIN 10.6 g/dL (14.0-18.0); LYMPHOCYTES # (AUTO) 0.2 K/uL (1.0-5.5); LYMPHOCYTES % (AUTO) 1.2 % (20.5-51.5); MEAN CORPUSCULAR HEMOGLOBIN 27 pg (27-31); MEAN CORPUSCULAR HGB CONC 33 % (32-36); MEAN CORPUSCULAR VOLUME 80 fL (79.0-98.0); MONOCYTES # (AUTO) 0.4 K/uL (0.0-1.0); MONOCYTES % (AUTO) 2.7 % (1.7-9.3); NEUTROPHILS # (AUTO) 15.1 K/uL (1.8-7.7); NEUTROPHILS % (AUTO) 94.8 % (40.0-70.0); PLATELET COUNT (AUTO) 53 K/uL (130-430); RED BLOOD CELL COUNT(AUTO) 3.94 MIL/uL (4.2-6.2); RED CELL DISTRIBUTION WIDTH 18.8 % (9.0-15.0); WHITE BLOOD COUNT (AUTO) 15.9 K/uL (4.8-10.8)
--- NOTE | 2020-07-01 07:40 | NUR ---
BLOOD DRAWL FROM RIGHT ARM PICC LINE STAT BLOOD WORM , DR MATHEW HERE AT THE BEDSIDE .
[2020-07-01 07:54] LABS: PROTHROMBIN TIME 10.3 SECS (9.5-12.5)
[2020-07-01] MEDS: LINEZOLID 300 ML IV SCH (08:13)
[2020-07-01] MEDS ORDERED: FUROSEMIDE 40 MG/4 ML VIAL ONE (08:37)
--- NOTE | 2020-07-01 08:50 | NUR ---
Naeem KRUEGER IN THE UNIT. ORDERED TO DO BLADDER SCAN. SCROTAL AREA SEEN MOIST AND WITH TEAR LIKE DRAINAGE PRIOR TO SCANNING, APPROXIMATELY 144 ML SEEN ON THE SCAN. CLEANED GENITAL, PERINEAL AREA, PAT DRY. DIOP CATHETER REMOVED, REPLACED WITH 16 FR SIZE, ASEPTIC TECHNIQUE DONE, FIBRIN CLOT SEEN, RYAN COLOR URINE OBTAINED.
[2020-07-01] MEDS ORDERED: FUROSEMIDE 40 MG/4 ML VIAL IVP ONE ×2 (09:15→12:00)
--- NOTE | 2020-07-01 12:24 | NUR ---
Nutrition F/U RD reviewed pt's current EMR record including diet Hx, physician notes, nursing notes, pertinent labs/meds/procedures, care trends, and care activity. Admission Dx: Chronic hypoxemic respiratory failure PMH: dementia and HTN per physician notes Pt also found w/ empyema, sepsis, and DERRICK per physician notes SARS-CoV-2 Ag (Rapid) Negative 06/25 Current Diet Order/Nutrition Support: Jevity 1.5 at 55 ml/hr, Free Water Flush: 100 ml Q 6H via OGT x2 days Provides: 1980 Kcal, 92gm protein and 1603ml fluids daily. Subjective Info: RD bedside visit deferred d/t isolation precaution and PPE conservation efforts. Pt is on vent and has not been tolerating weaning trials. CT of chest showed necrotic empyema, MD suspect abscess. Pt is scheduled to have VAT, but pt became anuric in the last 48 hrs and is now requiring dialysis before the procedure. Pending Akhil catheter insertion and consent. Per EMR review, pt w/ large amount of BM this morning, Brody score:8, no pressure injury/skin issues documented, 4+ pitting generalized edema, EN rate: 55ml (07/01); GRV: 0ml 07/01. Abd is soft and nondistended, w/ active bowel sounds. Consider renal appropriate formula once pt is started on dialysis and w/ abnormal renal labs. Pertinent Medications: piperacillin/tazobactam IV, reglan, Colace liquid, zofran Pertinent Labs: 07/01: WBC 15.9 H (trending down), Na 145 WNL(improved), K 4.5 WNL (improved), BUN 46 H (trending down), CRE 1.08 WNL (improved), BG 68 L. Ht: 5'7"/67" Wt: 136#/62 kg (06/26) -- no weight changes as of 07/01. Body Mass Index: 21.30 kg/m2 [place]/Adjusted Body Weight: IBW: 148#/67 kg. NEW Estimated Energy Expenditure (kcals/day) 1414 kcal/day (PSU for critical illness on vent) NEW Estimated Protein Required (g/day) 94-93 gm/day (1.2-1.5 gm/kg CBW d/t renal and possible dialysis and sepsis) NEW Estimated Fluid Required (l/day) per MD (dialysis) Problem/Etiology/Signs/Symptoms Increased nutritional needs related to metabolic demands as evidenced by estimated nutritional requirements for sepsis. *ongoing Expected Outcomes/Goals - Monitor tolerance to EN support w/ goal of pt meeting at least 80% of estimated nutritional needs, labs trending WNL, normal GI function, and skin integrity/wt maintenance Dietitian Recommendations * Recommend: switch formula to Nepro once dialysis is started. Consider Nepro at 45ml/hr via OGT Water flush per physician. Provides: 1944 Kcal, 87gm protein and 1385ml fluids daily. Meets: 89% of upper end of estimated calorie needs and 94% of upper end of estimated protein needs. Follow Up High Risk: F/U in 2-3 days
--- NOTE | 2020-07-01 12:33 | NUR ---
Dietitian Recommendations * Recommend: switch formula to Nepro once dialysis is started. Consider Nepro at 45ml/hr via OGT Water flush per physician. Provides: 1944 Kcal, 87gm protein and 1385ml fluids daily. Meets: 89% of upper end of estimated calorie needs and 94% of upper end of estimated protein needs. Please see Nutrition F/U note for details. DETENTION, RD
--- NOTE | 2020-07-01 15:26 | NUR ---
SURGEON. DR MATHEW CALLED TO FIND OUT IF PT GOT A DIALYSIS ACCESS. REPORTED THAT PT DIURESED OVER 1000 ML AFTER GETTING LASIX IVP. HE ORDERED TO CHECK POTASSIUM LEVEL. CHEMISTRY ORDERED STAT.
[2020-07-01 16:17] LABS: ANION GAP 10 (5-15); CALCIUM 7.2 mg/dL (8.4-11.0); CHLORIDE 111 mmol/L (98-107); CREATININE 1.22 mg/dL (0.55-1.30); GLUCOSE 118 mg/dL (70-99); SODIUM SERUM 145 mmol/L (136-145); UREA NITROGEN, BLOOD 47 mg/dL (8-21)
--- NOTE | 2020-07-01 17:50 | NUR ---
LAB TEST. POTASSIUM LEVEL 4, CONTINUE TO MONITOR PT. URINE COLOR LIGHT YELLOW, EMPTIED DIOP CATHETER BAG, 2450 ML TOTAL.
--- NOTE | 2020-07-01 19:05 | NUR ---
OPENING NOTE: RECEIVED REPORT FROM RN USING SBAR REPORTING. ALL CARE ASSUMED.
[2020-07-01] MEDS: FLUCONAZOLE 200 mg/ NS 100 ML IV SCH (20:48)
[2020-07-01] MEDS: FAMOTIDINE PF 20 MG/2 ML VIAL IVP SCH (20:48)
[2020-07-01] MEDS: FUROSEMIDE 20 MG TABLET PO SCH (20:48)
[2020-07-02] VITALS (30 sets, daily range): BP systolic 90–128
[2020-07-02] MEDS: PIPERACILLIN/TAZO 2.25G/DEX-IS 50 ML IV SCH ×2 (05:42→14:36)
[2020-07-02 06:02] LABS: BASOPHILS # (AUTO) 0.1 K/uL (0.0-0.2); BASOPHILS % (AUTO) 0.4 % (0.0-2.0); EOSINOPHILS # (AUTO) 0.2 K/uL (0.0-0.4); EOSINOPHILS % (AUTO) 1.5 % (0.0-4.0); HEMATOCRIT 35.1 % (36-54); HEMOGLOBIN 11.5 g/dL (14.0-18.0); LYMPHOCYTES # (AUTO) 0.2 K/uL (1.0-5.5); LYMPHOCYTES % (AUTO) 1.4 % (20.5-51.5); MEAN CORPUSCULAR HEMOGLOBIN 26 pg (27-31); MEAN CORPUSCULAR HGB CONC 33 % (32-36); MEAN CORPUSCULAR VOLUME 81 fL (79.0-98.0); MONOCYTES # (AUTO) 0.4 K/uL (0.0-1.0); MONOCYTES % (AUTO) 2.8 % (1.7-9.3); NEUTROPHILS # (AUTO) 12.4 K/uL (1.8-7.7); NEUTROPHILS % (AUTO) 93.9 % (40.0-70.0); PLATELET COUNT (AUTO) 62 K/uL (130-430); RED BLOOD CELL COUNT(AUTO) 4.37 MIL/uL (4.2-6.2); RED CELL DISTRIBUTION WIDTH 19.5 % (9.0-15.0); WHITE BLOOD COUNT (AUTO) 13.3 K/uL (4.8-10.8)
--- NOTE | 2020-07-02 07:24 | NUR ---
CLOSING NOTE: REPORT GIVEN TO RN USING SBAR REPORT. SAFETY PRECAUTIONS REINFORCED.
--- NOTE | 2020-07-02 07:30 | NUR ---
Opening Note Received plan of care via sbar from endorsing RN.
--- NOTE | 2020-07-02 07:43 | NUR ---
Received call from Dr. Strickland. Provided patient update. Received order to give 1 unit platelet now and to have a stand by order for 1 platelet and 2 PRBC. Explained that blood bank has already 2 PRBC on hold but I would order new order of platelet.
--- NOTE | 2020-07-02 07:45 | NUR ---
Spoke to April at Lab to discuss need for an additional platelet order for hold. SX scheduled for 07/02 729 per MD Strickland. Addendum: 07/02/20 at 0750 by Jarad Espinal RN 07/03 surgery scheduled.
[2020-07-02] MEDS: FUROSEMIDE 20 MG TABLET PO SCH ×3 (08:08→21:45)
--- NOTE | 2020-07-02 09:04 | NUR ---
Dr. Bucio at bedside. Provided patient update and discussed Dr. Strickland's request to give patient lasix 40 mg. Received orders for additional 40 mg lasix IVP once.
[2020-07-02] MEDS ORDERED: FUROSEMIDE 40 MG/4 ML VIAL IVP ONE (09:15)
--- NOTE | 2020-07-02 19:40 | NUR ---
Opening note Received report and assumed care. Patient resting in bed with vss. No signs of distress noted as patient continues on vent to ETT tolerating settings. Repositioned for comfort. will continue to monitor.
[2020-07-02] MEDS: FAMOTIDINE PF 20 MG/2 ML VIAL IVP SCH (21:44)
[2020-07-03] VITALS (10 sets, daily range): BP systolic 94–118
--- NOTE | 2020-07-03 00:10 | NUR ---
Repositioned for comfort. assessment completed. Feeding stopped as patient is NPO for surgery this morning.
--- NOTE | 2020-07-03 04:00 | NUR ---
CHG bath given Morning care provided. Linen changed and CHG bath given. Patient tolerated well.
[2020-07-03 05:40] LABS: BASOPHILS % (AUTO) 0.3 % (0.0-2.0); EOSINOPHILS # (AUTO) 0.2 K/uL (0.0-0.4); EOSINOPHILS % (AUTO) 2.4 % (0.0-4.0); HEMATOCRIT 34.1 % (36-54); HEMOGLOBIN 11.3 g/dL (14.0-18.0); LYMPHOCYTES # (AUTO) 0.2 K/uL (1.0-5.5); LYMPHOCYTES % (AUTO) 1.8 % (20.5-51.5); MEAN CORPUSCULAR HEMOGLOBIN 27 pg (27-31); MEAN CORPUSCULAR HGB CONC 33 % (32-36); MEAN CORPUSCULAR VOLUME 81 fL (79.0-98.0); MONOCYTES # (AUTO) 0.5 K/uL (0.0-1.0); MONOCYTES % (AUTO) 5.4 % (1.7-9.3); NEUTROPHILS # (AUTO) 8.2 K/uL (1.8-7.7); NEUTROPHILS % (AUTO) 90.1 % (40.0-70.0); PLATELET COUNT (AUTO) 62 K/uL (130-430); RED BLOOD CELL COUNT(AUTO) 4.22 MIL/uL (4.2-6.2); RED CELL DISTRIBUTION WIDTH 19.2 % (9.0-15.0); WHITE BLOOD COUNT (AUTO) 9.1 K/uL (4.8-10.8)
--- NOTE | 2020-07-03 07:25 | NUR ---
0725- Dr Lira ordered pt to be on 100% FIO2 , pt will be having A-line procedure. pt saturation 95%. RN Michelle vail. 0805- Pt brought to O.R. for more other procedure. Bagged pt 15LPM , no distress noted. ETT patent/secured. Assisted Dr. Lira/Dr. Gerber to bring pt to O.R.
--- NOTE | 2020-07-03 07:35 | NUR ---
AM ASSESSMENT PT AWAKE, ORALLY INTUBATED, PICC IN RIGHT UPPER ARM, DR SLADE AND DR SONG IN THE ROOM, ANESTHESIOLOGISTS, WILL BE WORKING FOR PT'S CENTRAL LINE, TIME OUT DONE.
[2020-07-03] MEDS ORDERED: POLYMYXIN 500,000/BACIT.10,000 UNITS in NS IRR 1 L IR ONE (07:37)
[2020-07-03] MEDS ORDERED: THROMBIN (BOVINE) 5000 UNITS/ VIAL TP ONE (07:37)
--- NOTE | 2020-07-03 07:50 | NUR ---
ARTERIAL LINE. NEW CENTRAL LINE IN RIGHT JUGULAR AREA INSERTED BY DR SLADE. ARTERIAL LINE IN RIGHT WRIST, USING 20 GAUGE NEEDLE, INSERTED BY DR SONG AND STITCHED IN BY DR SLADE TO SECURE AND COVERED WITH TRANSPARENT DRESSING.
--- NOTE | 2020-07-03 08:00 | NUR ---
TO OR. TRANSPORTED PT VIA BED, ACCOMPANIED BY KATHLEEN Diego, BAGGING THRU ETT, PORTABLE CARDIAC MONITORING IN USE.
[2020-07-03] MEDS: FUROSEMIDE 20 MG TABLET PO SCH (09:00)
[2020-07-03] MEDS ORDERED: NOREPINEPHRINE BITARTRATE 4 MG in NS 246 ML IV PRN (10:30)
[2020-07-03] MEDS ORDERED: ALBUMIN HUMAN 25% 200 ML IV ONE ×2 (10:55→15:45)
--- NOTE | 2020-07-03 11:00 | NUR ---
TO ICU. PT WAS BROUGHT BACK TO ROOM 1, ACCOMPANIED BY OR STAFF, CHEST TUBE TO RIGHT AND LEFT CHEST IN PLACE WITH BLOODY DRAINAGE IN THE RESERVOIR AND THEN ATTACHED TO SUCTION, RECEIVING HIS 5TH UNIT PACKED RBC, BP 40/26, HEART RATE 122, DIOP CATHETER WITH SCANTY AMOUNT OF URINE. LEVOPHED DRIP INITIATED AT 0.1 MCG/KG/MIN.
--- NOTE | 2020-07-03 11:06 | NUR ---
RT NOTES 1106 Pt back to ICU 1. Bagged pt on 15LPM during transport. O.R. changed pt ett to univent 7.0/20cm LL Per Dr. Gerber. bilateral chest rise seen. connect pt to vent w/ same settings PRVC 20. Pt achieving adequate tidal volume. pt has both left and right side chest tube. PRAKASH Martinez at bedside.
--- NOTE | 2020-07-03 11:10 | NUR ---
rt notes 1110 ordered ABG on PRVC 20, 400VT, PEEP 5, 100% FIO2. 1119 Dr. Strickland ordered RT to titrate FIO2 down to 60%, PO2 262.3
[2020-07-03] MEDS ORDERED: MORPHINE 4 MG/ML INJ. SYRINGE IVP PRN (11:15)
[2020-07-03] MEDS ORDERED: VASOPRESSIN 20 UNITS/ML VIAL IV ONE (11:43)
--- NOTE | 2020-07-03 11:45 | NUR ---
IV MEDS VASOPRESSIN DRIP AT 0.4 UNIT PER MIN ORDERED BY DR MATHEW.
[2020-07-03] MEDS ORDERED: MAGNESIUM SULFATE/D5W 100 ML IV ONE (11:59)
--- NOTE | 2020-07-03 12:00 | NUR ---
rt notes 1200 Dr Strickland ordered another ABG, PRVC 20, 400VT, PEEP 5, 60% FIO2 [address] Strickland, ABG results, HB <4.0.
[2020-07-03 12:06] LABS: BASOPHILS % (AUTO) 0.6 % (0.0-2.0); EOSINOPHILS # (AUTO) 0.1 K/uL (0.0-0.4); EOSINOPHILS % (AUTO) 1.4 % (0.0-4.0); LYMPHOCYTES # (AUTO) 0.3 K/uL (1.0-5.5); LYMPHOCYTES % (AUTO) 7.9 % (20.5-51.5); MEAN CORPUSCULAR HEMOGLOBIN 30 pg (27-31); MEAN CORPUSCULAR HGB CONC 33 % (32-36); MEAN CORPUSCULAR VOLUME 91 fL (79.0-98.0); MONOCYTES # (AUTO) 0.2 K/uL (0.0-1.0); MONOCYTES % (AUTO) 5.3 % (1.7-9.3); NEUTROPHILS # (AUTO) 3.7 K/uL (1.8-7.7); NEUTROPHILS % (AUTO) 84.8 % (40.0-70.0); RED CELL DISTRIBUTION WIDTH 15.9 % (9.0-15.0); WHITE BLOOD COUNT (AUTO) 4.4 K/uL (4.8-10.8)
--- NOTE | 2020-07-03 12:10 | NUR ---
MEDS. MAGNESIUM 1 GRAM RIDER GIVEN ORDERED BY DR MATHEW. LEVOPHED DRIP INFUSING.
[2020-07-03 12:22] LABS: RED BLOOD CELL COUNT(AUTO) 1.33 MIL/uL (4.2-6.2)
[2020-07-03 12:23] LABS: ANION GAP 14 (5-15); CREATININE 1.07 mg/dL (0.55-1.30); GLUCOSE 110 mg/dL (70-99); POTASSIUM 3.8 mmol/L (3.5-5.1); SODIUM SERUM 152 mmol/L (136-145); UREA NITROGEN, BLOOD 34 mg/dL (8-21)
[2020-07-03 12:25] LABS: HEMATOCRIT 12.1 % (36-54); PLATELET COUNT (AUTO) 13 K/uL (130-430)
--- NOTE | 2020-07-03 12:26 | NUR ---
ARTERIAL LINE. DR OCAMPO AT BEDSIDE AND INSERTED ANOTHER ARTERIAL LINE THRU RIGHT FEMORAL.
[2020-07-03 12:31] LABS: CHLORIDE 120 mmol/L (98-107)
[2020-07-03 12:33] LABS: CALCIUM < 5.0 mg/dL (8.4-11.0)
--- NOTE | 2020-07-03 12:35 | NUR ---
CODE BLUE. CPR STARTED, PULSES UNPALPABLE, DOPPLER MACHINE THRU FEMORAL AREA, PULSES NONE HEARD NOR SEEN IN THE MACHINE, R.T. BAGGING AND CHEST COMPRESSION, DR MATHEW AND DR SONG AT BEDSIDE, 2 DOSES SODIUM BICARB, ATROPINE AND CALCIUM GLUCONATE IVP GIVEN.
--- NOTE | 2020-07-03 12:50 | NUR ---
TRANSFUSION. PACKED RBC INFUSING RAPIDLY AT THIS HOUR.
[2020-07-03] MEDS ORDERED: PHENYLEPHRINE HCL 10 MG/ML VIAL (NEOSYNEPHRINE) ONE (12:58)
[2020-07-03 13:14] LABS: INR 3.5 (0.80-1.20)
--- NOTE | 2020-07-03 13:23 | NUR ---
CODE STATUS. DR WILCOX IN THE ROOM, DNR STATUS GIVEN BY THE FAMILY.
[2020-07-03 13:29] LABS: PROTHROMBIN TIME 34.6 SECS (9.5-12.5)
--- NOTE | 2020-07-03 13:40 | NUR ---
rt notes 1106- came back to ICU 1 assisted pt via BVM 100%, immediately connect pt to vent (PRVC 20, 400VT, PEEP 5, fio2 100%). pt unstable. pt was monitored closely. Dr. Gerber/ Dr. Strickland at bedside whole time. 1110- Dr. Strickland ordered ABG. abg nadiya. PO2 262.3 Dr. Strickland ordered to lowered down fio2 to 60% 1200- Dr. Strickland ordered another ABG. per 2nd ABG Results, HB <4.0, given orders to RN's. 1244- pt started to be kenneth, and started to code. CPR immediately started, Bagged pt via BVM 15LPM. ACLS meds given by RN's. 1247- ROSC achieved. 1300- 3rd ABG nadiya, on 15LPM BVM. 1307- Pt started coding again, Pt not achieving tidal volume, Dr. Bucio pushed ETT down. 1319- PEA 1330- Dr. Bucio talked to family, family decided pt to be DNR. 1340- Pt went on asystole, rhythm showed. Dr. Bucio pronounced time of .
--- NOTE | 2020-07-03 14:09 | NUR ---
[facility]. CALLED [facility] OFFICE SPOKE TO ALAN, REPORT GIVEN ON THE , SHE SAID THE SURGEON WHO PERFORMED THE OPERATION SHOULD BE CALLING THE DUTY DOCTOR. CALLED [facility] AND SPOKE TO JUDITH, REPORT GIVEN ON THE , SHE GAVE .
--- NOTE | 2020-07-03 14:20 | NUR ---
SURGEON. CALLED DR MTAHEW TO CONTACT [facility] OFFICE AND T SPEAK TO A DUTY DOCTOR.
--- NOTE | 2020-07-03 15:03 | NUR ---
SURGEON. DR MATHEW CALLED AND HE STATED THAT HE ALREADY CALLED THE DEPARTMENT CHAIR'S OFFICE, CLEARANCE NUMBER [phone]. CAUSE OF SECONDARY TO LUNG CA. 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
[2020-07-03] MEDS ORDERED: VASOPRESSIN 20 UNITS in NS 99 ML IV PRN (15:45)
[2020-07-03] MEDS ORDERED: ALBUMIN HUMAN 5% 250 ML IV ONE (15:45)
[2020-07-03] MEDS ORDERED: MAGNESIUM SULFATE 1 GM/2 ML VIAL IVP ONE (15:45)
--- NOTE | 2020-07-03 16:00 | NUR ---
POST MORTEM CARE. HYGIENE PROVIDED, LOOSE BOWEL MOVEMENT, BACK AND SIDE OF THE BODY WITH BLOODY STAIN, CHEST TUBES, ARTERIAL LINES, PICC LINE, DIOP CATHETER, ETT NGT REMOVED.
--- NOTE | 2020-07-03 17:00 | NUR ---
FAMILY. PT'S SON AND HIS FAMILY CAME IN TO SEE THE . BODY WILL BE PLACED TO A HOLDING ROOM SINCE THEY DO NOT HAVE MADE ARRANGEMENT FOR THE HOME. NO AUTOPSY DESIRED BY THE FAMILY.
[2020-07-03] MEDS ORDERED: CEFEPIME 0.5 GM in D5W 50 ML IV SCH (21:00)
--- NOTE | 2020-07-04 10:17 | NUR ---
Body Hold: OTM CONSULTANT phoned son Can to offer resources which Can had refused and stated mortuary arrangements have been made.
== END 2020-07-03 13:40 | DRG 853 ==
LOC: SIC 15:58
PROVIDERS: ADMIT Internal Medicine Hospice and Palliative Medicine; ATTEND Internal Medicine Hospice and Palliative Medicine
PROC: 5A1955Z Respiratory Ventilation, Greater than 96 Consecutive Hours (ICD-10-PCS; 2020-06-25)
PROC: 0BH17EZ Insertion of Endotracheal Airway into Trachea, Via Natural or Artificial Opening (ICD-10-PCS; 2020-06-25)
PROC: 0BBJ0ZZ Excision of Left Lower Lung Lobe, Open Approach (ICD-10-PCS; 2020-07-03)
PROC: 0BBC0ZZ Excision of Right Upper Lung Lobe, Open Approach (ICD-10-PCS; 2020-07-03)
PROC: 0BQ Respiratory System, Repair (ICD-10-PCS; 2020-07-03)
PROC: 30233N1 Transfusion of Nonautologous Red Blood Cells into Peripheral Vein, Percutaneous Approach (ICD-10-PCS; 2020-07-03)
PROC: 0W9900Z Drainage of Right Pleural Cavity with Drainage Device, Open Approach (ICD-10-PCS; 2020-07-03)
PROC: 5A12012 Performance of Cardiac Output, Single, Manual (ICD-10-PCS; 2020-07-03)
PROC: 30233R1 Transfusion of Nonautologous Platelets into Peripheral Vein, Percutaneous Approach (ICD-10-PCS; principal; 2020-07-03 07:30)
DX: A41.9 Sepsis, unspecified organism (principal); J86.9 Pyothorax without fistula; J69.0 Pneumonitis due to inhalation of food and vomit; G93.41 Metabolic encephalopathy; J15.9 Unspecified bacterial pneumonia; J96.21 Acute and chronic respiratory failure with hypoxia; G72.81 Critical illness myopathy; N17.9 Acute kidney failure, unspecified; J91.8 Pleural effusion in other conditions classified elsewhere; Z99.11 Dependence on respirator [ventilator] status; D64.9 Anemia, unspecified; E87.5 Hyperkalemia; F03.90 Unspecified dementia, unspecified severity, without behavioral disturbance, psychotic disturbance, mood disturbance, and anxiety; I12.9 Hypertensive chronic kidney disease with stage 1 through stage 4 chronic kidney disease, or unspecified chronic kidney disease; C80.1 Malignant (primary) neoplasm, unspecified; N18.9 Chronic kidney disease, unspecified; D69.6 Thrombocytopenia, unspecified; R62.7 Adult failure to thrive; Z20.822 Contact with and (suspected) exposure to COVID-19; Z68.21 Body mass index [BMI] 21.0-21.9, adult; Z79.899 Other long term (current) drug therapy; I46.9 Cardiac arrest, cause unspecified
CPT/HCPCS: 36415; 36600; 71045; 80048; 80053; 82803-TC; 82962; 85007; 85025; 85027; 85049-TC; 85610-TC; 85651-TC; 85730-TC; 86480; 86635; 86738; 86886; 86900; 86901; 86920; 87040-TC; 87070-TC; 87075-TC; 87081; 87101; 87205-TC; 87449; 88305; 92950; 93005; 94002; 94003; 94640; C1751; C1887; J0360; J0692; J0885; J1030; J1450; J1644; J1940; J2001; J2020; J2060; J2370; J2543; J2916; J3490; J7030; J7040; J7050; J7060; P9012; P9021; P9034; P9046